=== PATIENT | male | born 1970 | race Caucasian/White ===

== ENCOUNTER 2018-03-10 22:35 | Emergency (ER) | payer OTHER, SELFPAY ==
--- NOTE | 2018-03-11 01:20 | ED.VISSUMM ---
- ER Visit Summary Date of Service: 03/11/18 Chief Complaint: Abdominal pain, nausea, diarrhea History of Present Illness: The patient is a 47 M patient states epigastric abdominal pain today. Nausea with dry heaving. Diarrhea since this a.m. approximately 16 episodes. No melena or hematochezia. Last episode was in the ED. No recent antibiotics. No sick contacts. No fevers. No chest pains or shortness of breath. Rare NSAID use. Reported seen in urgent care 4 weeks ago for similar episodes. Was placed on omeprazole with improvement of symptoms. He finished his repletion yesterday. Pending a current appointment with his PCP. No urinary symptoms. Physical Examination: General: Alert and oriented ?3, no acute distress HEENT: Normocephalic, atraumatic. Moist mucosa membranes Neck: supple, nontender. Cardiovascular: Regular rate and rhythm, no murmurs Respiratory: Normal breath sounds, symmetric, no distress Abdomen: Soft, mild epigastric tenderness without guarding or rebound r, nondistended. Normal bowel sounds. Negative Henderson's or McBurney's tenderness. Extremities: Nontender, no edema, pulses intact ?4 Neuro: no focal neurological deficits. Test Results: Creatinine 1.34, lipase 109, LFTs normal Emergency Department Course and Treatment: Patient nontoxic, mild epigastric tenderness. IV fluids given. Zofran and GI cocktail with improvement symptoms. I did check electrolytes. Creatinine elevated at 1.34. Lipase and liver enzymes normal. Able tolerate little oral fluids. No emesis in the ED. Discussed findings of slight renal insufficiency. He will avoid NSAIDs. Use Tylenol as needed. Continue oral hydration. Prescription of omeprazole, Carafate, Zofran written. Follow-up with PCP for reevaluation. He will return if any worsening symptoms. Treatment Plan: [] Disposition: Discharge Impression: 1. Abdominal pain 2. Gastritis 3. Diarrhea 4. Renal insufficiency This note was generated with bookletmobile dictation software. It may contain incorrect words, spelling, and punctuation that were not noted in review of the chart prior to signing ED Disposition - Plan for ED Patient: Disposition: Home or Assisted Living Diagnosis: Epigastric abdominal pain, Gastritis, Diarrhea, Renal insufficiency Referrals: Krzysztof Kamara DO [Primary Care Provider] -
[2018-03-11 01:26] LABS: AST(SGOT) 15 U/L (15-37); Alanine Aminotransfer ALT/SGPT 42 U/L (16-61); Albumin, Serum 3.7 g/dL (3.2-5.0); Alkaline Phosphatase 101 U/L (45-117); Anion Gap 7 (5-15); BUN 21 mg/dL (7-18); BUN/Creat Ratio 15.7 RATIO (10-20); Calcium,Total 8.3 mg/dL (8.5-10.1); Chloride 106 mmol/L (98-107); Creatinine, Serum 1.34 mg/dL (0.70-1.30); EST Glomerular Filtration Rate 60 mL/min (>60); Est Glom Filt Rate - Afr Amer 73 mL/min (>60); Globulin 3.8 g/dL (2.2-4.2); Glucose 105 mg/dL (74-106); Potassium 4.2 mmol/L (3.5-5.1); Protein, Total 7.5 g/dL (6.4-8.2); Sodium Level 140 mmol/L (136-145)
== END 2018-03-10 22:50 | disposition home or self-care (01) ==
PROVIDERS: Emergency Provider Emergency Medicine; Family Provider Student in an Organized Health Care Education/Training Program; PCP Student in an Organized Health Care Education/Training Program
DX: K29.70 Gastritis, unspecified, without bleeding (principal); R10.9 Unspecified abdominal pain; R19.7 Diarrhea, unspecified; N28.9 Disorder of kidney and ureter, unspecified; K21.9 Gastro-esophageal reflux disease without esophagitis
CPT/HCPCS: 36415; 80053; 96361; 96374; 99285; J7030; A4216; J2405

== ENCOUNTER 2022-03-02 18:29 | Emergency (ER) | payer OTHER, SELFPAY ==
[2022-03-02 18:31] VITALS: BP 174/108; PULSE 86; RESP 15; TEMP 36.6; O2SAT 99; BMI 31.0
--- NOTE | 2022-03-02 19:00 | CT_ITS ---
EXAM: CT ANGIOGRAPHY CHEST WITHOUT AND WITH INTRAVENOUS CONTRAST CLINICAL INDICATION: pe TECHNIQUE: Helically acquired angiography images were obtained of the chest without and with intravenous contrast. This CT exam was performed using one or more of the following dose reduction techniques: automated exposure control, adjustment of the mA and/or kV according to patient size, and/or use of iterative reconstruction technique. This report was created using Screenie report generation technology. MIP reconstructed images were created and reviewed. CONTRAST: IV 100mL [id number] RADIATION DOSE: CTDIvol = 12.12 mGy, DLP = 510.04 mGy-cm COMPARISON: None. FINDINGS: PULMONARY ARTERIES: No demonstrated pulmonary embolism or arterial dissection. AORTA: There is atherosclerotic calcification of the aortic arch with tortuosity and elongation of the aortic arch and descending thoracic aorta. Normal in caliber. No evidence of dissection. GREAT VESSELS OF AORTIC ARCH: Unremarkable. Normal in caliber. No evidence of dissection. LUNGS AND PLEURAL SPACES: Unremarkable. No mass. No consolidation or edema. No pleural effusion or thickening. No pneumothorax. HEART: Unremarkable. Heart size is normal. No pericardial effusion. No signs of right heart strain, ratio of right ventricle to left ventricle measures less than 1. MEDIASTINUM: Unremarkable. No mediastinal or hilar adenopathy. Esophagus is unremarkable. No hiatal hernia. THYROID: Unremarkable. No thyroid lesions. BONES/JOINTS: There are degenerative changes of the shoulders. There are multi-level degenerative changes of the thoracic spine. No suspicious lytic or blastic abnormality. CT/CTA Chest W/WO Contrast IMPRESSION: No demonstrated pulmonary embolism or arterial dissection. Electronically Signed: Rolly Oliveira MD at 20:53 EDT ,
--- NOTE | 2022-03-02 19:00 | EKG12_ITS ---
Test Reason : SOB Blood Pressure : / mmHG Vent. Rate : 070 BPM Atrial Rate : 070 BPM P-R Int : 156 ms QRS Dur : 084 ms QT Int : 382 ms P-R-T Axes : 032 045 026 degrees QTc Int : 412 ms Normal sinus rhythm Normal ECG Confirmed by RIVKA FAULKNER, DAVIN ([id number]), fashion editor WALLACE JOHNSON ([id number]) on 03/04/2022 1:40:06 PM Referred By: PL Confirmed By:DAVIN TINEO MD
--- NOTE | 2022-03-02 19:02 | EX.ED.DYSGE1 ---
HPI History of Present Illness Chief Complaint: General Illness Informant: patient Narrative Narrative: Patient presents with multiple symptoms. Patient states he had Covid about 10 weeks ago. A lot of the symptoms recovered. However, he states he still is exhausted. He used to work 12 hours a day and have energy. Now he sometimes feels exhausted by noon. 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 He states he gets short of breath with this activity and it slows him down. He occasionally has had some little discomfort in the front of his chest but it is nonconsistent and is not there now. He has also been told he probably has some blood pressure meds and was going to start fish oil but has not started that or any other meds. The only medications he takes routinely are vitamins and supplements. He is also currently on antibiotics for the coughing and symptoms. He is also on it for a small red area in his lower chest. His symptoms are getting slightly better. The redness is less and he is coughing less but he still short of breath. He has never had a PE or DVT. PFSH PFS Home Medications amlodipine 5 mg PO DAILY #30 tab 03/02/22 [Rx Last Taken Unknown] Allergy/AdvReac Type Severity Reaction Status Date / Time acetaminophen [From Vicodin] AdvReac Vomiting Verified 03/02/22 18:33 hydrocodone bitartrate AdvReac Vomiting Verified 03/02/22 18:33 [From Vicodin] Social History Smoking Status: Never smoker [facility] [place] ED Constitutional Constitutional ED: Denies chills, fever(s) or sweats Eyes Eyes: Denies blurry vision ENT ENT ED: Denies sore throat Cardiovascular Cardiovascular: Reports chest pain; Denies palpitations or racing heartbeat Respiratory/Chest Respiratory/Chest: Reports cough and dyspnea; Denies sputum Gastrointestinal Gastrointestinal: Denies nausea or vomiting Genitourinary Genitourinary ED: Denies dysuria Musculoskeletal Musculoskeletal: Denies arthralgias, back pain, myalgias or neck pain Integumentary Reports other Details: Red area and lower chest. This has been recurrent. It is improving. Neurologic Neurologic: Denies headache(s), paresthesias or weakness Psychiatric Psychiatric: Denies anxiety or depression Endocrine Endocrinology: Denies polydipsia or polyuria Allergic/Immunologic Allergic/Immunologic ED: Denies urticaria EXAM Physical Exam Const Vital Signs: 03/02/22 18:31 03/02/22 18:43 03/02/22 19:42 Temperature 97.8 F Temperature Source Temporal Pulse Rate 86 86 Respiratory Rate 15 19 H Respiratory Effort Short of Breath Respiratory Pattern Normal Tachypnea Blood Pressure 174/108 H Blood Pressure Mean 130 Pulse Ox 99 03/02/22 21:15 Temperature Temperature Source Pulse Rate 82 Respiratory Rate 18 Respiratory Effort Respiratory Pattern Blood Pressure 189/109 H Blood Pressure Mean 135 Pulse Ox 97 Positive well nourished and well developed General Appearance ED: well developed and NAD; Negative for cyanotic or diaphoretic HEENT Reports moist mucous membranes Eyes General Eye ED: Negative for pale conjunctiva or scleral icterus Neck no JVD Chest Wall inspection of chest normal and palpation of chest normal Chest Narrative: There is an area of erythema and slight firmness below the xiphoid on the right. It looks to be a small infection but is not able to be drained. Is not fluctuant. Resp normal respiratory effort and clear to auscultation bilaterally Resp Narrative: Lungs sound clear. I do not hear any definitive rales or rhonchi or wheezing. Cardio regular rate and regular rhythm GI normal to inspection, nondistended, normoactive bowel sounds and non-tender Palpation: soft Neuro Sensorium / Orientation: alert Psych mental status grossly normal Skin Skin Narrative: See above of MDM MDM MDM Narrative Medical decision making narrative: Patient CBC is normal. Electrolytes are normal. Glucose is normal. Troponin is negative. CTA shows no acute process. Patient's had his blood pressure checked here. Its been elevated multiple times. He is evidently had an elevated an outpatient. This could be the source of some of his symptoms. I will start him on a low-dose of amlodipine. He has an appointment with his doctor this . His symptoms may also be from long-haul or syndrome of Covid. That is when everything started and they have continued on. We discussed reasons to return but he does have follow-up in 2 days. Lab Data Attestation: I reviewed the patient's lab results. Labs: Laboratory Results - last 24 hr 03/02/22 03/02/22 19:25 19:25 WBC 10.5 RBC 4.92 Hgb 14.8 Hct 43.4 MCV 88.2 MCH 30.1 MCHC 34.1 RDW Std Deviation 43.5 RDW Coeff of Alla 13.4 Plt Count 245 MPV 10.2 Immature Gran % (Auto) 0.500 Neut % (Auto) 69.1 Lymph % (Auto) 20.4 Petroleum % (Auto) 7.6 Eos % (Auto) 1.9 Baso % (Auto) 0.5 Absolute Neuts (auto) 7.3 Absolute Lymphs (auto) 2.15 Nucleated RBC % 0 Sodium 140 Potassium 3.8 Chloride 111 H Carbon Dioxide 25.0 Anion Gap 4 L BUN 17 Creatinine 0.98 Estim Creat Clear Calc 88.17 Est GFR (MDRD) Af Amer 102 Est GFR (MDRD) Non-Af 85 BUN/Creatinine Ratio 17.3 Glucose 105 Calcium 9.0 Troponin I High Sens 16 Radiography Diagnostic Testing: Clinical Impression(s) from Imaging Studies Chest CTA 03/02/22 19:00 IMPRESSION: No demonstrated pulmonary embolism or arterial dissection. Electronically Signed: Rolly Oliveira MD at 20:53 EDT Reading Location ID and State: [facility] / [place] , Service support , EKG Initial EKG: Comments: EKG done for chest pain dyspnea read by me shows normal sinus rhythm with a rate of 70. No acute ST elevation or depression. No ectopy. NC interval, QRS duration and QTc are normal. Discharge Plan Triage Chief Complaint: General Illness ED Provider: Jero Griffiths Dx/Rx/DC Orders Clinical Impression: COVID-19 long hauler, Elevated blood pressure reading Instructions: Hypertension Dc Prescriptions: New amlodipine 5 mg tablet 5 mg PO DAILY Qty: 30 RF: 0 Primary Care Provider: Krzysztof Kamara Referrals: Krzysztof Kamara, [Primary Care Provider] - Keep Jorgito appointment Disposition Disposition: Home, Self Care
[2022-03-02 19:36] LABS: Absolute Lymphocyte Count 2.15 X10^3/uL (0.83-4.51); Absolute Neutrophil Count 7.3 X10^3/uL (2.0-7.7); Basophil# 0.05 X10^3/uL; Basophil% 0.5 % (0-1); Eosinophils% 1.9 % (0-5); Hematocrit 43.4 % (40-54); Hemoglobin 14.8 g/dL (13.0-16.5); Lymphocyte # 2.15 X10^3/ul (0.83-4.51); Lymphocyte % 20.4 % (19-41); Mean Corp Hgb Conc 34.1 g/dL (32-36); Mean Corpuscular Hgb 30.1 pg (27.0-32.0); Mean Corpuscular Volume 88.2 fL (80-94); Mean Platelet Vol. 10.2 fl (6.2-12.0); Monocyte% 7.6 % (0-10); NRBC Flagged by Analyzer 0 % (0-5); Neutrophil # 7.28 X10^3/uL (2.7-7.7); Neutrophil % 69.1 % (47-70); Platelet Count 245 K/mm3 (150-450); RBC Distribution Width CV 13.4 % (11.6-14.6); RBC Distribution Width SD 43.5 fl (35.1-43.9); Red Blood Count 4.92 M/mm3 (4.6-6.2); White Blood Count 10.5 K/mm3 (4.4-11.0)
[2022-03-02 19:42] VITALS: PULSE 86; RESP 19
[2022-03-02] MEDS: Ipratropium/Albuterol Sulfate 3 ML AMPUL.NEB INHALATION (19:42)
[2022-03-02 20:04] LABS: Anion Gap 4 (5-15); BUN 17 mg/dL (7-18); BUN/Creat Ratio 17.3 RATIO (10-20); Chloride 111 mmol/L (98-107); Creatinine, Serum 0.98 mg/dL (0.70-1.30); EST Glomerular Filtration Rate 85 mL/min (>60); Est Glom Filt Rate - Afr Amer 102 mL/min (>60); Estimated Creatinine Clearance 88.17 ml/min; Glucose 105 mg/dL (74-106); Potassium 3.8 mmol/L (3.5-5.1); Sodium Level 140 mmol/L (136-145); Troponin-I HS 16 pg/mL (3.0-78.0)
[2022-03-02 21:15] VITALS: BP 189/109; PULSE 82; RESP 18; O2SAT 97
== END 2022-03-02 22:01 | disposition home or self-care (01) ==
PROVIDERS: Emergency Provider Emergency Medicine; PCP Student in an Organized Health Care Education/Training Program; Visit Provider Emergency Medicine
DX: R06.02 Shortness of breath (principal); R03.0 Elevated blood-pressure reading, without diagnosis of hypertension; U09.9 Post COVID-19 condition, unspecified
CPT/HCPCS: 71275; 80048; 84484; 85025; 93005; 94640; 99284; Q9967

== ENCOUNTER 2022-06-22 02:31 | Emergency (ER) | payer OTHER, SELFPAY ==
[2022-06-22 02:32] VITALS: BP 182/113; PULSE 62; RESP 18; TEMP 36.1; O2SAT 100; BMI 31.4
[2022-06-22 02:39] VITALS: BP 182/113; PULSE 70; RESP 20; TEMP 36.3; O2SAT 99
--- NOTE | 2022-06-22 02:40 | CT_ITS ---
STUDY: CT ABDOMEN AND PELVIS WITHOUT CONTRAST REASON FOR EXAM: Male, 51 years old. Pain RADIATION DOSAGE (If Supplied By Facility): CTDIvol = ( 11.64 ) mGy, DLP = ( 747.58 ) mGycm TECHNIQUE: Transaxial images were obtained from the dome of the diaphragm to the symphysis pubis without oral contrast, and without intravenous contrast. Sagittal and coronal images were reconstructed. Individualized dose optimization techniques were used for this CT. COMPARISON: None. FINDINGS: The visualized lung bases are unremarkable. The visualized portions of the heart are within normal limits. There is decreased attenuation of the liver consistent with steatosis. There are surgical clips in the gallbladder fossa consistent with a prior cholecystectomy. Normal spleen. Normal pancreas. Normal bilateral adrenal glands. Follow-up right hydronephrosis and right hydroureter however, significant right-sided perinephric fat stranding and edema. There is a punctate 2 mm stone in the distal right ureter however, suspect superimposed infection. Normal left kidney. There is a small hiatal hernia. Normal small intestine. There are multiple colonic diverticula consistent with diverticulosis. The appendix is visualized and appears normal. Normal abdominal aorta. Normal inferior vena cava. Normal retroperitoneum. Under distended urinary bladder with wall thickening. Normal visualized prostate gland. Normal abdominal wall. Normal osseous structures. Bilateral fat-containing inguinal hernia CT/Abdomen/Pelvis without Cont IMPRESSION: Right-sided hydronephrosis and hydroureter with significant right-sided perinephric fat stranding. Only tiny stone in the distal right ureter. Suspect superimposed infection. Possible cystitis of the urinary bladder. Recommend correlation with UA Electronically Signed: Gordon Amanda DO at 4:29 EDT ,
--- NOTE | 2022-06-22 02:41 | EDS_ITS ---
HPI HPI - GI History of Present Illness Chief Complaint: Flank Pain Informant: patient and spouse/S.O. Abdominal Pain/Flank Pain Onset: Days Context: Gradual Onset Quality: Sharp and Stabbing Location: Right Flank Current Severity: Moderate Maximum Severity: Moderate Worsened by: Nothing Relieved by: Nothing Nausea/Vomiting/Emesis GI Symptom: Positive for Nausea and Vomiting Onset: Today Severity: Mild Diarrhea/Melena/Hematochezia GI Symptom: Positive for Diarrhea Onset: Days Stool Quality: Positive for Loose Severity: Mild Associated Symptoms Associated Symptoms: Negative for Dysuria, Frequency, Hematuria or Urgency Narrative Narrative: 51-year-old male no seen past medical history. Prior cholecystectomy. States that he had difficulty urinating last several days and has had constipation now loose stools. Complaining tonight of right flank pain with 1 episode of nausea vomiting. Denies any melena. No hematemesis. No fever. No hematuria. No prior history of kidney stones or pain like this before. Prior similar symptoms: No Recent Illness/Hospitalization: No PFSH PFSH Medical History no medical history no medical history Home Medications amlodipine 5 mg tablet 5 mg PO DAILY #30 tabs 03/02/22 [Rx Last Taken Unknown] hydrocodone-acetaminophen 5-325mg 5mg-325mg 1 tab PO Q4H PRN pain 2 days #7 tabs 06/22/22 [Rx Last Taken Unknown] tamsulosin 0.4 mg capsule (Flomax) 0.4 mg PO DAILY #5 caps 06/22/22 [Rx Last Taken Unknown] Allergy/AdvReac Type Severity Reaction Status Date / Time hydrocodone bitartrate AdvReac Vomiting Verified 03/02/22 18:33 [From Vicodin] Social History Smoking Status: Never smoker ROS ROS ED ROS Narrative Abdominal pain. Diarrhea. Constipation. Nausea and vomiting. Right flank pain. Review of Systems ROS Unobtainable: Denies due to encephalopathy Constitutional Constitutional ED: Denies chills or fever(s) ENT ENT ED: Denies ear pain Cardiovascular Cardiovascular: Denies chest pain Respiratory/Chest Respiratory/Chest: Denies cough Gastrointestinal Gastrointestinal: Reports abdominal pain, constipation, diarrhea, nausea and vomiting; Denies melena Genitourinary Genitourinary ED: Denies dysuria or hematuria Musculoskeletal Musculoskeletal: Reports back pain; Denies arthralgias Integumentary Denies abscess Neurologic Neurologic: Denies headache(s) Psychiatric Psychiatric: Denies anxiety Endocrine Endocrinology: Denies polydipsia Hematologic/Lymphatic Hematologic/Lymphatic: Denies easy bleeding Allergic/Immunologic Allergic/Immunologic ED: Denies mouth swelling EXAM Physical Exam Narrative Exam Narrative: 49-year-old male complain abdominal pain. Initial blood pressure is elevated 182/113. Afebrile. H EENT exam unremarkable. Lungs clear to auscultation bilaterally. Heart regular rhythm rate about 70 no murmur. Abdomen soft mildly tender. Mildly distended. Increased bowel sounds. His umbilical hernia. Does not appear to be incarcerated or strangulated. He has no significant right lower quadrant abdominal pain. No pulsatile mass. Moving all 4 extremities. Back nontender. Neurologically is awake and alert. Moving all 4 extremities. Const Vital Signs: 06/22/22 02:32 06/22/22 02:39 06/22/22 02:55 Temperature 96.9 F L 97.3 F L Temperature Source Temporal Temporal Pulse Rate 62 70 50 L Respiratory Rate 18 20 H 14 Blood Pressure 182/113 H 182/113 H 174/100 H Blood Pressure Mean 136 136 124 Pulse Ox 100 99 84 Oxygen Delivery Method Room Air Room Air Room Air Oxygen Flow Rate (L/min) 06/22/22 02:56 Temperature Temperature Source Pulse Rate 50 L Respiratory Rate 18 Blood Pressure 174/100 H Blood Pressure Mean 124 Pulse Ox 100 Oxygen Delivery Method Nasal Cannula Oxygen Flow Rate (L/min) 2 Positive well nourished, well developed and obese; Negative for cachectic, contractures or unkempt General Appearance ED: well developed; Negative for unkempt, cachectic, contractures or pallor Nutritional Appearance: obese; Negative for cachectic HEENT Reports moist mucous membranes normocephalic and atraumatic; Negative for trauma or tenderness Eyes PERRL and EOMs intact bilaterally General Eye ED: Negative for pale conjunctiva Neck no lymphadenopathy, supple and no JVD General: Negative for tenderness Carotids: Negative for other Lymph Lymphatic: Negative for other Resp normal respiratory effort and clear to auscultation bilaterally Effort and Inspection: Negative for respiratory distress Auscultation: Negative for rales, rhonchi or wheezes Cardio regular rate, regular rhythm, S1 normal heart sound, S2 normal heart sound and no murmurs Rate: Negative for bradycardia Rhythm: Negative for abnormal rhythm GI no masses; Negative for non-tender or non-distended Inspection: abdominal distention Auscultation: hyperactive bowel sounds Palpation: soft, tender and hernia; Negative for guarding, rigid, hepatomegaly, splenomegaly, mass, pulsatile mass or rebound tenderness present Back/Spine no CVA tenderness General Back: Negative for CVA tenderness Cervical Spine: Negative for cervical spine tenderness Thoracic Spine / Upper Back: Negative for thoracic spinal tenderness Lumbar Spine / Lower Back: Negative for lumbar spinal tenderness Extremity full ROM General Extremety ED: Negative for edema or tenderness General Extremity: Negative for edema Neuro CN's II-XII intact bilaterally and moves all extremities Sensorium / Orientation: alert, oriented to person, oriented to place and oriented to time; Negative for orientation impaired, confused, lethargic or stuporous Motor Exam: strength 5/5 throughout Psych mental status grossly normal and thought process normal Appearance: Negative for unkempt Attitude: No agitated Mood & Affect: Negative for depressed Skin no wounds General Skin Exam: Negative for jaundice or pallor Lesions: no lesions Rashes: no rashes Trauma: Negative for abrasion Nails: Negative for discolored MDM MDM MDM Narrative Medical decision making narrative: Patient with flank and abdominal pain. Possibly kidney stone versus bowel o bstruction versus other etiologies. CAT scan labs pending. Treated with 1 L normal saline IV, IV morphine and IV Zofran for pain and nausea. Repeat exam, patient is doing well at 3:45 AM. He was initially treated with morphine and Zofran. He is also received a dose of Toradol and his pain is improving. Awaiting formal CAT scan read. Patient doing well at 4:40 AM. CAT scan showed a right 2 mm stone distal ureter. Discussed with both he and his . He prefers not to be on pain meds so get a prescription for [place] and Flomax but only use them as needed. He thinks he will just try Tylenol Motrin. He has nausea medication at home. Lab Data Attestation: I reviewed the patient's lab results. Lab results narrative: CBC normal. White count of 10. H&H 14 and 43. Urinalysis shows 250 occult blood. 25-50 red cells. No white cells. 1+ bacteria. Electrolytes unremarkable. Gap of 5. Normal BUN and creatinine. Liver enzymes unremarkable. Lipase normal. Glucose 133. Labs: Laboratory Results - last 24 hr 06/22/22 06/22/22 06/22/22 02:36 02:36 02:36 WBC 10.8 RBC 4.83 Hgb 14.7 Hct 43.9 MCV 90.9 MCH 30.4 MCHC 33.5 RDW Std Deviation 44.3 H RDW Coeff of Alla 13.2 Plt Count 240 MPV 10.4 Immature Gran % (Auto) 0.500 Neut % (Auto) 51.0 Lymph % (Auto) 37.3 [place] % (Auto) 7.9 Eos % (Auto) 3.0 Baso % (Auto) 0.3 Absolute Neuts (auto) 5.5 Absolute Lymphs (auto) 4.04 Nucleated RBC % 0 Sodium 140 Potassium 3.4 L Chloride 105 Carbon Dioxide 30.0 Anion Gap 5 BUN 17 Creatinine 1.06 Estim Creat Clear Calc 81.52 Est GFR (MDRD) Af Amer 94 Est GFR (MDRD) Non-Af 78 BUN/Creatinine Ratio 16.0 Glucose 133 H Calcium 8.6 Total Bilirubin 0.30 AST 23 ALT 56 Alkaline Phosphatase 90 Total Protein 7.9 Albumin 3.8 Globulin 4.1 Albumin/Globulin Ratio 0.9 Lipase 214 Urine Color Yellow Urine Clarity Clear Urine pH 5.0 Ur Specific [place] 1.025 Urine Protein 100 H Urine Glucose (UA) Normal Urine Ketones Negative Urine Occult Blood 250 H Urine Nitrite Negative Urine Bilirubin Negative Urine Urobilinogen Normal Ur Leukocyte Esterase Negative Urine RBC 25-50 SEEN Urine WBC 0 SEEN Ur Squamous Epith Cells 0 SEEN Urine Bacteria 1+ Urine Mucus 0 SEEN Radiography Diagnostic Testing: Clinical Impression(s) from Imaging Studies Abdomen/Pelvis CT 06/22/22 02:40 IMPRESSION: Right-sided hydronephrosis and hydroureter with significant right-sided perinephric fat stranding. Only tiny stone in the distal right ureter. Suspect superimposed infection. Possible cystitis of the urinary bladder. Recommend correlation with UA Electronically Signed: Gordon Amanda DO at 4:29 EDT , Discharge Plan Triage Chief Complaint: Flank Pain ED Provider: Serafin Amaya Dx/Rx/DC Orders Clinical Impression: Kidney stone on right side Instructions: ED Kidney Stone w/ Colic Prescriptions: New hydrocodone-acetaminophen 5-325 mg tablet 1 tab PO Q4H PRN (Reason: pain) 2 Days Qty: 7 0RF tamsulosin [Flomax] 0.4 mg capsule 0.4 mg PO DAILY Qty: 5 0RF No Action amlodipine 5 mg tablet 5 mg PO DAILY Qty: 30 0RF Primary Care Provider: Krzysztof Kamara Referrals: Krzysztof Kamara, [Primary Care Provider] - As Needed Activity Restrictions/Additional Instructions: Plenty of fluids and rest. Motrin Tylenol for pain. If you need stronger pain medication I wrote your prescription for [place]. Also Flomax as needed but you should pass the stone without the need of that. Follow-up with your doctor if not improving. Disposition Disposition: Home, Self Care
[2022-06-22] MEDS: Ondansetron 4 MG/2 ML Vial IV (02:47)
[2022-06-22] MEDS: 0.9% Normal Saline 1,000 ML 1000 ML IV (02:47)
[2022-06-22] MEDS: morphine 8 MG/ML Syringe IV (02:47)
[2022-06-22 02:55] VITALS: BP 174/100; PULSE 50; RESP 14; O2SAT 84
[2022-06-22 02:56] VITALS: BP 174/100; PULSE 50; RESP 18; O2SAT 100
[2022-06-22] MEDS: Ketorolac 30 MG/ML Syringe IV (03:17)
[2022-06-22 03:19] LABS: Mucous, Urine 0 SEEN /hpf (<or=2+); Squamous Epithelial Cells - UA 0 SEEN /hpf (0-5); White Blood Cells 0 SEEN /hpf (0-5)
[2022-06-22 03:28] LABS: Absolute Lymphocyte Count 4.04 X10^3/uL (0.83-4.51); Absolute Neutrophil Count 5.5 X10^3/uL (2.0-7.7); Basophil# 0.03 X10^3/uL; Basophil% 0.3 % (0-1); Eosinophil# 0.32 X10^3/uL; Hematocrit 43.9 % (40-54); Hemoglobin 14.7 g/dL (13.0-16.5); Lymphocyte # 4.04 X10^3/ul (0.83-4.51); Lymphocyte % 37.3 % (19-41); Mean Corp Hgb Conc 33.5 g/dL (32-36); Mean Corpuscular Hgb 30.4 pg (27.0-32.0); Mean Corpuscular Volume 90.9 fL (80-94); Mean Platelet Vol. 10.4 fl (6.2-12.0); Monocyte# 0.86 X10^3/uL; Monocyte% 7.9 % (0-10); NRBC Flagged by Analyzer 0 % (0-5); Neutrophil # 5.52 X10^3/uL (2.7-7.7); Platelet Count 240 K/mm3 (150-450); RBC Distribution Width CV 13.2 % (11.6-14.6); RBC Distribution Width SD 44.3 fl (35.1-43.9); Red Blood Count 4.83 M/mm3 (4.6-6.2); White Blood Count 10.8 K/mm3 (4.4-11.0)
[2022-06-22 03:34] LABS: Color, Urine Yellow (Yellow); Glucose, Dipstick Normal (Normal); Ketone-Dipstick Negative (Negative); Leukocyte Esterase-Dipstick Negative /ul (Negative); Nitrite-Dipstick Negative (Negative); Occult Blood-Urine 250 /ul (Negative); Protein-Dipstick 100 mg/dl (Negative); Specific Gravity, Urine 1.025 (1.002-1.030); Urine Bilirubin Dipstick Negative (Negative); Urine Clarity Clear (Clear); Urine Urobilinogen Normal (Normal)
[2022-06-22 03:37] LABS: Bacteria 1+ /hpf (None Seen); Red Blood Cells-Urine 25-50 SEEN /hpf (0-5)
[2022-06-22 03:46] LABS: ALB/GLOB Ratio 0.9 RATIO (0.9-2.4); AST(SGOT) 23 U/L (15-37); Alanine Aminotransfer ALT/SGPT 56 U/L (16-61); Albumin, Serum 3.8 g/dL (3.2-5.0); Alkaline Phosphatase 90 U/L (45-117); Anion Gap 5 (5-15); BUN 17 mg/dL (7-18); Calcium,Total 8.6 mg/dL (8.5-10.1); Chloride 105 mmol/L (98-107); Creatinine, Serum 1.06 mg/dL (0.70-1.30); EST Glomerular Filtration Rate 78 mL/min (>60); Est Glom Filt Rate - Afr Amer 94 mL/min (>60); Estimated Creatinine Clearance 81.52 ml/min; Globulin 4.1 g/dL (2.2-4.2); Glucose 133 mg/dL (74-106); Lipase 214 U/L (73-393); Potassium 3.4 mmol/L (3.5-5.1); Protein, Total 7.9 g/dL (6.4-8.2); Sodium Level 140 mmol/L (136-145)
[2022-06-22 04:46] VITALS: BP 147/96; PULSE 58; O2SAT 98
[2022-06-22] MEDS: morphine 8 MG/ML Syringe 6 MG IV (04:47)
== END 2022-06-22 05:10 | disposition home or self-care (01) ==
PROVIDERS: Emergency Provider Emergency Medicine; PCP Student in an Organized Health Care Education/Training Program; Visit Provider Emergency Medicine
DX: N20.0 Calculus of kidney (principal); E66.9 Obesity, unspecified; Z79.899 Other long term (current) drug therapy
CPT/HCPCS: 74176; 80053; 81001; 83690; 85025; 87086; 96361; 96374; 96375; 96376; 99283; J7030; A4216; J2405

== ENCOUNTER 2023-07-27 09:34 | Emergency (ER) | payer OTHER, SELFPAY ==
[2023-07-27 09:36] VITALS: BP 157/98; PULSE 57; RESP 18; TEMP 35.9; O2SAT 98; BMI 32.8
--- NOTE | 2023-07-27 09:37 | CT_ITS ---
INDICATION: Right-sided abdominal pain for few days, possible kidney stone. EXAMINATION: CT ABDOMEN AND PELVIS WITHOUT CONTRAST TECHNIQUE: Helically acquired images were obtained of the abdomen and pelvis without oral or IV contrast. A radiation dose optimization technique was used for this scan. IV Contrast dosage and agent: None. Oral contrast: None. RADIATION DOSAGE (If Supplied By Facility): CTDIvol = ( 6.64 ) mGy, DLP = ( 765.75 ) mGycm COMPARISON: CT scan of the abdomen and pelvis of 06/22/2022. FINDINGS: LOWER CHEST: Lung bases are clear. No cardiomegaly or pericardial effusion. Partially visualized borderline ascending thoracic aortic aneurysm measuring 4 cm in AP diameter. LIVER: Mild hepatic steatosis. No focal mass is seen without contrast. GALLBLADDER AND BILIARY TREE: Absent gallbladder consistent with previous cholecystectomy. No intra- or extrahepatic biliary ductal dilation. PANCREAS: No focal cystic or solid mass. SPLEEN: Normal size without focal cystic or solid mass. ADRENAL GLANDS: No nodules. KIDNEYS AND URETERS: Normal renal size and position. Mild bilateral perinephric stranding. No evidence of ureteral stones. No evidence of hydronephrosis. PERITONEUM: No ascites or free air. No other fluid collection. BOWEL: No evidence of acute appendicitis. No stomach or bowel distension. Sigmoid diverticulosis without evidence of acute diverticulitis. LYMPH NODES: No enlarged mesenteric or retroperitoneal lymph nodes. VESSELS: Aorta is non-dilated. URINARY BLADDER: Distended. REPRODUCTIVE ORGANS: Large left hydrocele. ABDOMINAL WALL: Status post abdominal wall hernia repair. BONES: No lytic or blastic abnormality. CT/Abdomen/Pelvis without Cont IMPRESSION: 1. No evidence of urinary tract stones or hydronephrosis. 2. Diverticulosis without evidence diverticulitis. 3. No focal acute inflammatory process. 4. Mild hepatic steatosis. Electronically Signed: Pepe Cuevas MD at 10:20 EDT ,
--- NOTE | 2023-07-27 09:37 | EX.ED.DYSGE1 ---
HPI History of Present Illness Chief Complaint: Abd Pain Detail of Chief Complaint: Right flank pain that radiates to the right lower quadrant/groin Informant: patient Onset/Context/Timing Onset: Days (2 days ago) Context: Sudden Onset Timing: Continuous and Waxes and wanes Quality: Pain Location: Right flank, right lower quadrant Current Severity: 1/10 Maximum Severity: 8/10 Worsened by: Initially nothing now certain movements Relieved by: Nothing Associated Symptoms Associated Symptoms: Nausea and syncopal episode at [facility] Narrative Narrative: Patient is a 53-year-old healthy male with prior history of kidney stones 1 year ago. Based on his medicine he has a history of hypertension. He presents after syncopal episode. Had increased pain became pale, diaphoretic and nauseous and passed out. He was brought in by squad. He presently complains of 1 out of 10 pain right flank right lower quadrant. He does endorse frequency. He denies dysuria or hematuria. He asked that I speak to his regarding urologist. states he had passed the stone and never followed up with urology. Past history remarkable for cholecystectomy and multiple hernia repairs. He is a non-smoker. He denies alcohol or drug use. Prior similar symptoms: No (No prior history of syncope.) Recent Illness/Hospitalization: No [facility] Medical History (Updated 07/27/23 @ 10:[address] Randell Bolanos MD) Ureterolithiasis Home Medications amlodipine 5 mg tablet 5 mg PO DAILY #30 tabs 03/02/22 [Rx Last Taken Unknown] hydrocodone-acetaminophen 5-325mg 5mg-325mg 1 tab PO Q4H PRN pain 2 days #7 tabs 06/22/22 [Rx Last Taken Unknown] tamsulosin 0.4 mg capsule (Flomax) 0.4 mg PO DAILY #5 caps 06/22/22 [Rx Last Taken Unknown] Allergy/AdvReac Type Severity Reaction Status Date / Time hydrocodone bitartrate AdvReac Vomiting Verified 07/27/23 09:35 [From Vicodin] Social History (Updated 07/27/23 @ 09:[address] Randell Bolanos MD) household members: spouse Smoking Status: Never smoker substance use type: does not use ROS ROS ED Constitutional Constitutional ED: Denies chills, fever(s), subjective, sweats or weight loss Eyes Eyes: Denies blurry vision, change in vision or diplopia ENT ENT ED: Denies ear pain, rhinorrhea or sore throat Cardiovascular Cardiovascular: Denies chest pain, palpitations or racing heartbeat Respiratory/Chest Respiratory/Chest: Denies cough, dyspnea or dyspnea on exertion Gastrointestinal Gastrointestinal: Reports abdominal pain and nausea Genitourinary Genitourinary ED: Reports urinary frequency; Denies dysuria or hematuria Musculoskeletal Musculoskeletal: Reports back pain; Denies arthralgias, myalgias or neck pain Integumentary Denies rash Neurologic Neurologic: Denies headache(s) or paresthesias Endocrine Endocrinology: Denies cold intolerance or heat intolerance EXAM Physical Exam Const Vital Signs: 07/27/23 09:36 Temperature 96.7 F L Temperature Source Temporal Pulse Rate 57 L Respiratory Rate 18 Blood Pressure 157/98 H Blood Pressure Mean 117 Pulse Ox 98 Oxygen Delivery Method Room Air Positive well nourished and well developed Constitutional Narrative: Patient's T-shirt is wet due to diaphoresis. General Appearance ED: well developed and NAD; Negative for pallor HEENT Reports moist mucous membranes HEENT Narrative: Head is atraumatic normocephalic. Ears normal. TMs normal. Nares patent. No septal deviation hematoma. No dental trauma. Eyes PERRL and EOMs intact bilaterally General Eye ED: Negative for pale conjunctiva or scleral icterus Neck no lymphadenopathy, supple and no JVD Neck Narrative: No pain outpatient posterior neck. Chest Wall inspection of chest normal and palpation of chest normal Resp normal respiratory effort and clear to auscultation bilaterally Cardio regular rate, regular rhythm, S1 normal heart sound, S2 normal heart sound and no murmurs GI normal to inspection, nondistended, normoactive bowel sounds and non-distended; Negative for hepatosplenomegaly Palpation: soft and tender RLQ Back/Spine no CVA tenderness Thoracic Spine / Upper Back: Negative for thoracic spinal tenderness Lumbar Spine / Lower Back: Negative for lumbar spinal tenderness Extremity normal to inspection General Extremety ED: Negative for edema or tenderness General Extremity: Negative for edema Neuro oriented x3, CN's II-XII intact bilaterally and no sensory deficits noted Sensorium / Orientation: alert Psych mental status grossly normal Skin no rashes or lesions noted, no wounds and skin turgor normal General Skin Exam: elasticity normal; Negative for jaundice or pallor MDM MDM MDM Narrative Medical decision making narrative: With prior history of ureterolithiasis abrupt onset of atraumatic right flank pain rating to his groin suspect patient has obstructing ureteral stone. CT was ordered. UA was obtained to assess for infection. BMP was obtained to assess renal function. Patient not receive pain medicine since he presently reports a 1 out of 10 pain. Since he had increased pain with nausea felt lightheaded and was diaphoretic prior to passing out no further work-up is indicated since his history is consistent with a vasovagal syncopal episode. Lab Data Attestation: I reviewed the patient's lab results. Lab results narrative: CBC is normal. Basic metabolic panel is unremarkable. Urinalysis is unremarkable. Labs: Laboratory Results - last 24 hr 07/27/23 07/27/23 09:40 09:42 WBC 9.0 RBC 4.87 Hgb 15.0 Hct 43.5 MCV 89.3 MCH 30.8 MCHC 34.5 RDW Std Deviation 44.9 H RDW Coeff of Alla 13.8 Plt Count 213 MPV 10.3 Immature Gran % (Auto) 0.400 Neut % (Auto) 61.2 Lymph % (Auto) 24.7 Eagle % (Auto) 9.0 Eos % (Auto) 4.1 Baso % (Auto) 0.6 Absolute Neuts (auto) 5.5 Absolute Lymphs (auto) 2.23 Nucleated RBC % 0 Sodium 141 Potassium 3.7 Chloride 110 H Carbon Dioxide 26.0 Anion Gap 5 BUN 20 H Creatinine 1.09 Estim Creat Clear Calc 74.95 Est GFR (MDRD) Af Amer 91 Est GFR (MDRD) Non-Af 75 BUN/Creatinine Ratio 18.3 Glucose 124 H Calcium 8.5 Urine Color Yellow Urine Clarity Clear Urine pH 5.0 Ur Specific [place] 1.025 Urine Protein 30 H Urine Glucose (UA) Normal Urine Ketones Negative Urine Occult Blood 10 H Urine Nitrite Negative Urine Bilirubin Negative Urine Urobilinogen Normal Ur Leukocyte Esterase Negative Urine RBC 0 SEEN Urine WBC 0-5 SEEN Ur Squamous Epith Cells 0 SEEN Urine Bacteria 0 SEEN Urine Mucus 0 SEEN Radiography Diagnostic Testing: Clinical Impression(s) from Imaging Studies Abdomen/Pelvis CT 07/27/23 09:37 IMPRESSION: 1. No evidence of urinary tract stones or hydronephrosis. 2. Diverticulosis without evidence diverticulitis. 3. No focal acute inflammatory process. 4. Mild hepatic steatosis. Electronically Signed: Pepe Cuevas MD at 10:20 EDT , Treatment and Re-Evaluation :: Patient and were informed of laboratory results, urinalysis result and CAT scan result. He was discharged home. He does have history of hypertension. He did take his blood pressure med prior to coming in. Discharge Plan Triage Chief Complaint: Abd Pain ED Provider: Randell Bolanos Dx/Rx/DC Orders Clinical Impression: Acute right flank pain, Syncope, vasovagal, Hypertension, Abdominal pain, acute, right lower quadrant Instructions: ED Flank Pain, Uncertain Cause, ED Fainting, Vagal Reaction Prescriptions: No Action amlodipine 5 mg tablet 5 mg PO DAILY Qty: 30 0RF hydrocodone-acetaminophen 5-325 mg tablet 1 tab PO Q4H PRN (Reason: pain) 2 Days Qty: 7 0RF tamsulosin [Flomax] 0.4 mg capsule 0.4 mg PO DAILY Qty: 5 0RF Primary Care Provider: Krzysztof Kamara Referrals: Krzysztof Kamara DO [Primary Care Provider] - As Needed Disposition Disposition: Home, Self Care
[2023-07-27 09:55] LABS: Bacteria 0 SEEN /hpf (None Seen); Mucous, Urine 0 SEEN /hpf (<or=2+); Red Blood Cells-Urine 0 SEEN /hpf (0-5); Squamous Epithelial Cells - UA 0 SEEN /hpf (0-5)
[2023-07-27 09:55] LABS: Absolute Lymphocyte Count 2.23 X10^3/uL (0.83-4.51); Absolute Neutrophil Count 5.5 X10^3/uL (2.0-7.7); Basophil# 0.05 X10^3/uL; Basophil% 0.6 % (0-1); Eosinophil# 0.37 X10^3/uL; Eosinophils% 4.1 % (0-5); Hematocrit 43.5 % (40-54); Lymphocyte # 2.23 X10^3/ul (0.83-4.51); Lymphocyte % 24.7 % (19-41); Mean Corp Hgb Conc 34.5 g/dL (32-36); Mean Corpuscular Hgb 30.8 pg (27.0-32.0); Mean Corpuscular Volume 89.3 fL (80-94); Mean Platelet Vol. 10.3 fl (6.2-12.0); Monocyte# 0.81 X10^3/uL; NRBC Flagged by Analyzer 0 % (0-5); Neutrophil # 5.54 X10^3/uL (2.7-7.7); Neutrophil % 61.2 % (47-70); Platelet Count 213 K/mm3 (150-450); RBC Distribution Width CV 13.8 % (11.6-14.6); RBC Distribution Width SD 44.9 fl (35.1-43.9); Red Blood Count 4.87 M/mm3 (4.6-6.2)
[2023-07-27 10:00] LABS: Color, Urine Yellow (Yellow); Glucose, Dipstick Normal (Normal); Ketone-Dipstick Negative (Negative); Leukocyte Esterase-Dipstick Negative /ul (Negative); Nitrite-Dipstick Negative (Negative); Occult Blood-Urine 10 /ul (Negative); Protein-Dipstick 30 mg/dl (Negative); Specific Gravity, Urine 1.025 (1.002-1.030); Urine Bilirubin Dipstick Negative (Negative); Urine Clarity Clear (Clear); Urine Urobilinogen Normal (Normal)
[2023-07-27 10:14] LABS: Anion Gap 5 (5-15); BUN 20 mg/dL (7-18); BUN/Creat Ratio 18.3 RATIO (10-20); Calcium,Total 8.5 mg/dL (8.5-10.1); Chloride 110 mmol/L (98-107); Creatinine, Serum 1.09 mg/dL (0.70-1.30); EST Glomerular Filtration Rate 75 mL/min (>60); Est Glom Filt Rate - Afr Amer 91 mL/min (>60); Estimated Creatinine Clearance 74.95 ml/min; Glucose 124 mg/dL (74-106); Potassium 3.7 mmol/L (3.5-5.1); Sodium Level 141 mmol/L (136-145)
[2023-07-27 10:16] LABS: White Blood Cells 0-5 SEEN /hpf (0-5)
== END 2023-07-27 10:34 | disposition home or self-care (01) ==
PROVIDERS: Emergency Provider Emergency Medicine; PCP Student in an Organized Health Care Education/Training Program; Visit Provider Emergency Medicine
DX: R55 Syncope and collapse (principal); R11.0 Nausea; I10 Essential (primary) hypertension; Z90.49 Acquired absence of other specified parts of digestive tract; R10.31 Right lower quadrant pain
CPT/HCPCS: 74176; 80048; 81001; 85025; 99285